=== PATIENT | female | born 1990 | race African-American/Black ===

== ENCOUNTER 2019-04-26 16:56 | Emergency (ER) | payer OTHER, SELFPAY ==
[2019-04-26 17:05] VITALS: BP 127/72; PULSE 88; RESP 18; TEMP 36.6; O2SAT 100
--- NOTE | 2019-04-26 18:33 | ED.GENADULT ---
HPI - General Adult General Chief complaint: Unspecified Stated complaint: left hip discomfort, cough x 2 weeks Time Seen by Provider: 04/26/19 17:26 Source: patient Mode of arrival: ambulatory Limitations: no limitations History of Present Illness HPI narrative: This is a 28 year old about 10 weeks that presents to the ER for cough x 3 weeks. Reports a nonproductive cough. Reports she has been taking OTC medication with little relief. Also reports left hip pain. No known injury or trauma. Pain is in the back of the left hip and sometimes radiates down the leg. Pain is worse with movement and relieved with rest. She has not taken any pain medication for this. Denies fever, rhinorrhea, congestion, sore throat, chest pain, shortness of breath, pelvic cramping, or vaginal bleeding. Related Data Home Medications Medication Instructions Recorded Confirmed [id number] fumarate-FA tablet PO 04/26/19 [] Allergies Allergy/AdvReac Type Severity Reaction Status Date / Time Sulfa (Sulfonamide Allergy Unknown Hives Verified 04/26/19 17:29 Antibiotics) Review of Systems Review of Systems: Narrative: CONSTITUTIONAL: Denies fever ENT: Denies rhinorrhea, congestion, sore throat, or otalgia. CARDIOVASCULAR: Denies chest pain RESPIRATORY: Reports cough. Denies dyspnea. MUSCULOSKELETAL: Reports joint pain, and myalgia. NEUROLOGIC: Denies numbness, or weakness. All systems reviewed & are unremarkable except as noted in HPI and below PMFSH Past Medical History Medical History (Updated 04/26/19 @ 18:44 by Luann Menjivar PA-C) History of obesity Social History Social History (Updated 04/26/19 @ 18:37 by Luann Menjivar PA-C) Smoking status: Never smoker Substance use: never Exam Narrative: Exam Narrative: GENERAL: Well-appearing, obese and in no acute distress. HEAD: Normocephalic, atraumatic. EYES: EOMI. ENT: Nares clear, no rhinorrhea or epistaxis. Mucous membranes moist. Oropharynx without tonsillar hypertrophy exudate or other lesions. Bilateral TMs pearly barger non-bulging NECK: Supple. No adenopathy or masses. CHEST: Clear to auscultation. No respiratory distress. No wheezes rales or rhonchi HEART: Regular rate and rhythm. No murmur heard. Normal peripheral pulses. BACK: No midline spinal tenderness EXTREMITIES: Normal range of motion. No edema or erythema. Strength equal in bilateral lower extremities SKIN: Warm, dry, no rash. NEURO: No focal deficits. Alert and oriented x3. PSYCH: Normal mood and affect Course Vital Signs Vital signs: Vital Signs Temperature 97.9 F 04/26/19 17:05 Pulse Rate 88 04/26/19 17:05 Respiratory Rate 18 04/26/19 17:05 Blood Pressure 127/72 04/26/19 17:05 Pulse Oximetry 100 04/26/19 17:05 Temperature 97.9 F 04/26/19 17:05 Pulse Rate 88 04/26/19 17:05 Respiratory Rate 18 04/26/19 17:05 Blood Pressure 127/72 04/26/19 17:05 Pulse Oximetry 100 04/26/19 17:05 Medical Decision Making MDM Narrative Medical decision making narrative: Patient presents the emergency department for nonproductive cough x3 weeks. She is afebrile and nontoxic-appearing. Lungs are clear on exam. Patient oxygen saturation is 100% on room air. She is not tachycardic. Patient was instructed on continued symptomatic care of viral infection. Patient also reports left hip pain. No known injury or trauma. Pain is in the posterior hip and radiates down the leg. Worse with movement and relieved with rest. She has not taken any pain medicine as she was unsure what was safe in . I instructed that Tylenol is safe for her to take in and for her to rest and use heat and ice to the area. I informed her that I did not think that imaging would be necessary without any injury to the area. Patient is able to walk. She has no midline spinal tenderness. She is neurologically intact. I did not think that imaging would help, and would expos
[2019-04-26 19:20] VITALS: BP 121/69; PULSE 79; RESP 15; TEMP 36.9; O2SAT 97
== END 2019-04-26 19:20 | disposition home or self-care (01) ==
PROVIDERS: Emergency Provider Emergency Medicine; PCP Internal Medicine
DX: R05 Cough (principal); M25.552 Pain in left hip; E66.9 Obesity, unspecified; Z68.41 Body mass index [BMI] 40.0-44.9, adult
CPT/HCPCS: 99281

== ENCOUNTER 2019-10-16 10:48 | Observation (INO) | payer OTHER, SELFPAY ==
[2019-10-16 11:15] VITALS: BMI 49.1
--- NOTE | 2019-10-16 11:15 | OBADM ---
This patient, Diana Booth, admitted to the OB room Labor/Delivery/Recovery 103 for observation for contractions and pressure. Patient/family oriented to hospital policies and general routines including ID bracelet, bed and alarms, visiting hours, pain management, procedures, bathroom and other care routines, personal items, smoking policy, room service/diet, and visiting hours. Patient/Family are encouraged to report perceived risks to care and to ask questions if they do not understand what they are told or what they should do.
--- NOTE | 2019-10-18 08:14 | P.DS_ITS ---
DS: Admitting Diagnosis Admitting Diagnosis Admitting Diagnosis: Term False labor DS: Discharge Diagnosis Discharge Diagnosis (1) Term : Code(s): Z34.90 - Encounter for supervision of normal , unspecified, unspecified trimester Status: Acute (2) False labor: Code(s): O47.9 - False labor, unspecified Status: Acute OB - DS: Summary OB Procedures : None OB Procedures Intrapartum: Other OB Procedures: : None Time Spent with Patient Time attestation: Total time spent providing and/or coordinating discharge services:15 Exam Const: General: comfortable Limitations: no limitations Chest: Breast/axilla inspection: normal inspection of the breasts Resp: Effort & Inspection: normal respiratory effort Cardio: Rate: regular rate GI: GI Palp: Yes Soft to palpation : General: Yes bladder normal to inspection Manual OB Exam: Not dilated nor effaced Amniotic Fluid: no fluid Psych: Appearance: grossly normal Mental Status: mental status grossly normal Affect: normal affect Attitude: cooperative Thought content: Yes Normal thought content present Judgement: Good judgement present (Psych) Discharge Plan Discharge Attending physician on discharge: Valentin Braun Discharging Clinician: Valentin Braun Anticipated Discharge Date/Time: 10/17/19 20:13 Patient Disposition: Home, Self-Care Activity: as tolerated Diet: as tolerated Discharge Instructions: OB ANTEPARTUM DISCHARGE INSTRUCTIONS This information is given to help you properly care for yourself at home after your discharge from the hospital. Follow these instructions until your doctor tells you otherwise. DIET: Eat Three Well Balanced Meals per Day Drink at Least Eight 8-Ounce Glasses of Caffeine-Free Beverages Daily ACTIVITY: As Tolerated RETURN TO LABOR AND DELIVERY IF YOU HAVE: Any Change In Baby's Normal Movement Pattern Any Leakage of Fluid Contractions 5-7 Minutes Apart with Increasing Intensity Vaginal Bleeding Contractions may feel like abdominal pain, tightening, cramping, pressure, back ache, or thigh ache. FOLLOW-UP CARE: Keep Next Scheduled Appointment To see Dr. Braun on 10/18/19 Valuables released to patient or family? N/A Medications from home returned to patient? N/A I Have Received Information Regarding Effective Home Pain Management I Acknowledge Receipt of and Understand the Above Instructions IF YOU HAVE ANY QUESTIONS REGARDING THESE INSTRUCTIONS, PLEASE CALL [phone]. IF PROBLEMS ARISE, CALL YOUR PROVIDER. IF EMERGENCY CARE IS NEEDED, [facility] EM[facility] ROOM IS AVAILABLE 24 HOURS A DAY. Stand Alone Forms: General Discharge Information Follow-up/Referrals: Valentin Braun MD [Physician] - 10/18/19 Discharge Medications: Continued 28-800 mg-mcg Tablet 1 tablet PO DAILY RF: 0 Date of admission: 10/16/19 10:48 Primary Care Provider: KymberlyAdriane Admitting Provider: Valentin Braun Interventions: Discharge Disposition Last Done: 10/16/19 14:33 Discharge Date/Time: 10/16/19 14:33 Attending physician on admission: Valentin Braun Condition: Stable
== END 2019-10-16 14:33 | disposition home or self-care (01) ==
PROVIDERS: Admitting Provider Obstetrics & Gynecology; PCP Internal Medicine; Visit Provider Obstetrics & Gynecology
DX: O47.1 False labor at or after 37 completed weeks of gestation (principal); Z3A.37 37 weeks gestation of pregnancy
CPT/HCPCS: G0378; G0379

== ENCOUNTER 2019-10-30 06:26 | Inpatient (IN) | payer OTHER, SELFPAY ==
[2019-10-30] VITALS (154 sets, daily range): BP systolic 47–186; BP diastolic 33–153; PULSE 75–200; RESP 16; TEMP 36.2–36.8; O2SAT 97–100; BMI 52.0; BMI 51.4
[2019-10-30] MEDS: DINOPROSTONE 10 MG VAG INSERT VAGINAL (07:52)
[2019-10-30 07:54] LABS: Basophils Percent Auto 0.2 % (0.2-1.2); Eosinophils Percent Auto 0.2 % (0-4.4); Hematocrit 31.9 % (37.0-47.0); Hemoglobin 11.2 g/dL (12.0-15.0); Immature Granulocyte Absolute 0.03 K/mm3 (0.00-0.031); Immature Granulocyte Percent A 0.3 % (0-0.5); Lymphocytes Absolute Auto 1.98 K/mm3 (0.9-3.2); Mean Corpuscular HGB Conc 35.1 g/dl (32-36); Mean Corpuscular Hemoglobin 28.4 pg (26-34); Mean Corpuscular Volume 80.8 fl (80-100); Mean Platelet Volume 12.4 fl (7.4-10.4); Monocytes Absolute Auto 0.5 K/mm3 (0.1-0.6); Monocytes Percent Auto 5.4 % (2.6-8.5); Neutrophils Absolute Auto 6.9 K/mm3 (1.3-6.7); Neutrophils Percent Auto 72.9 % (45.5-73.1); Platelet Count Result 146 k/mm3 (150-375); Red Blood Count 3.95 M/mm3 (4.2-5.4); Red Cell Distribution Width 14.4 % (11.5-14.5); White Blood Count 9.4 K/mm3 (4.5-10.0)
--- NOTE | 2019-10-30 08:00 | LDADM ---
This patient, Diana Booth, was admitted to Labor/Delivery/Recovery 108 on 10/30/19 at 06:26. Plans for labor, pain management and were discussed with patient. Patient/family oriented to hospital policies and general routines including ID bracelet, bed and alarms, visiting hours, pain management, procedures, bathroom and other care routines, personal items, smoking policy, room service/diet and guest tray routines, security routines, and visiting hours. Patient/Family are encouraged to report perceived risks to care and to ask questions if they do not understand what they are told or what they should do. See [facility] for further documentation.
--- NOTE | 2019-10-30 09:11 | WPDOBADMIT ---
Obstetrics - Admit Note Admission Note: record reviewed. No pertinent additions to the history and/or any subsequent changes in the physical findings that are not consistent with the expected course of the were found. Additions to the history and/or subsequent changes in the physical findings follow. None. 29yo aaf at 39 3/7 weeks here for elective IOL informed consent obtained
--- NOTE | 2019-10-30 09:34 | WPDANESEPP ---
Anes - Eval Pre Procedure Procedure: labor epidural Date/Time: 10/30/19 09:34 Preop Diagnosis: labor pain Pre Op Diagnosis: induction of labor Patient Data Age: 29 Gender: F Height: 5 ft 9 in Weight: 160 kg Last Vital Signs Pulse 101 H 10/30/19 08:07 BP 119/66 10/30/19 08:07 Allergies Allergy/AdvReac Type Severity Reaction Status Date / Time Sulfa (Sulfonamide Allergy Unknown Hives Verified 04/26/19 17:29 Antibiotics) Home Medications Medication Instructions Recorded Confirmed Type 1 tablet PO DAILY 04/26/19 10/16/19 History Laboratory Tests 10/30/19 10/30/19 10/30/19 07:44 07:44 07:44 WBC 9.4 K/mm3 K/mm3 (4.5-10.0) RBC 3.95 M/mm3 L M/mm3 (4.2-5.4) Hgb 11.2 g/dL L g/dL (12.0-15.0) Hct 31.9 % L % (37.0-47.0) MCV 80.8 fl fl (80-100) MCH 28.4 pg pg (26-34) MCHC 35.1 g/dl g/dl (32-36) RDW 14.4 % % (11.5-14.5) Plt Count 146 k/mm3 L k/mm3 (150-375) MPV 12.4 fl H fl (7.4-10.4) Immature Gran % (Auto) 0.3 % % (0-0.5) Neut % (Auto) 72.9 % % (45.5-73.1) Lymph % (Auto) 21.0 % % (18.3-44.2) [place] % (Auto) 5.4 % % (2.6-8.5) Eos % (Auto) 0.2 % % (0-4.4) Baso % (Auto) 0.2 % % (0.2-1.2) Lymph # (Auto) 1.98 K/mm3 K/mm3 (0.9-3.2) [place] # (Auto) 0.5 K/mm3 K/mm3 (0.1-0.6) Eos # (Auto) 0.0 K/mm3 K/mm3 (0-0.3) Baso # (Auto) 0.0 K/mm3 K/mm3 (0.0-0.1) Abs Immat Gran (auto) 0.03 K/mm3 K/mm3 (0.00-0.031) Absolute Neuts (auto) 6.9 K/mm3 H K/mm3 (1.3-6.7) Absolute Nucleated RBC 0.0 K/mm3 K/mm3 (0.0-0.012) Nucleated RBC % 0.0 % % (0.0-0.2) RPR Pending Blood Type B Positive Antibody Screen Negative Patient hx anesthesia problems: none Family hx anesthesia problems: none [facility] Past Medical History Medical History (Updated 10/18/19 @ 08:14 by Valentin Braun MD) History of obesity Family History Family History (Updated 10/15/19 @ 15:48 by Yenny North RN) Mother Hypertension Social History Social History (Updated 04/26/19 @ 18:37 by Luann Menjivar PA-C) Smoking status: Never smoker Substance use: never Gender identity (if verbalized by the patient): Female Spiritual care concerns: No Exam Day of Procedure 10/30/19 09:34
[2019-10-30] MEDS: LACTATED RINGERS 1,000 ML 125 ML IV CONT ×3 (10:00→15:21)
[2019-10-30] MEDS: AMPICILLIN 2 GM/NS 100 ML 2 GM/100 ML BAG IVPB (10:00)
[2019-10-30] MEDS: AMPICILLIN 1 GM/NS 50 ML 1 GM/50 ML BAG IVPB ×2 (15:21→17:49)
[2019-10-30] MEDS: OXYTOCIN 30 UNITS/NS 500 ML 30 UNITS/500 ML BAG IV CONT (15:55)
--- NOTE | 2019-10-30 18:59 | PM.IMHP ---
H&P: HPI History of Present Illness Date/Time: 10/30/19 06:59 Chief complaint: induction of labor Narrative: Diana Booth is a 29 year old female AAF @ 39 3/7wks ega with h/o obesity, MTHFR GBS+ here for elective IOL +fm, irregular contractions denies ROM or VB dating by 1st trimester US on 04/05/19 at 9w5d kimo= 11/03/19; 11 visits; 3 ultrasounds desires sterilization pp Review of Systems Review of Systems: All systems reviewed & are unremarkable except as noted in HPI and below PMFSH Past Medical History Medical History History of obesity Family History Family History Mother Hypertension Grandparent Diabetes mellitus Grandparent Bone cancer Social History Social History Smoking status: Never smoker Second hand tobacco smoke exposure: No Alcohol intake: former Substance use: former Substance use type: marijuana Living arrangements: with friend(s) Occupation/Education: unemployed 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 Gender identity (if verbalized by the patient): Female Sexual Orientation (if Verbalized by the Patient): Straight or Heterosexual Spiritual care concerns: No Agree to blood products: Yes Meds Home Medications and Allergies Home Medications Medication Instructions Recorded Confirmed Type 1 tablet PO DAILY 04/26/19 10/30/19 History Allergies Allergy/AdvReac Type Severity Reaction Status Date / Time Sulfa (Sulfonamide Allergy Unknown Hives Verified 04/26/19 17:29 Antibiotics) fluconazole [From Diflucan] Allergy Swelling Verified 10/30/19 09:57 Vital Signs Vital Signs - 24 hr 10/30/19 08:07 10/30/19 10:13 10/30/19 10:14 Temperature 97.6 F Pulse Rate 101 H 79 Blood Pressure 119/66 87/44 L Pulse Oximetry 10/30/19 10:30 10/30/19 10:36 10/30/19 10:42 Temperature 97.8 F 97.8 F Pulse Rate 79 Blood Pressure 115/63 Pulse Oximetry 10/30/19 12:13 10/30/19 12:42 10/30/19 12:44 Temperature 97.2 F L Pulse Rate 200 H 110 H Blood Pressure 153/115 H 135/63 Pulse Oximetry 100 10/30/19 12:47 10/30/19 12:52 10/30/19 12:55 Temperature Pulse Rate Blood Pressure Pulse Oximetry 100 100 100 10/30/19 12:56 10/30/19 12:59 10/30/19 13:04 Temperature Pulse Rate 105 H Blood Pressure 118/69 Pulse Oximetry 100 100 100 10/30/19 13:06 10/30/19 13:08 10/30/19 13:09 Temperature Pulse Rate 103 H 103 H Blood Pressure 134/103 H 124/89 Pulse Oximetry 100 10/30/19 13:10 10/30/19 13:12 10/30/19 13:14 Temperature Pulse Rate 89 91 Blood Pressure 115/67 137/57 L Pulse Oximetry 100 10/30/19 13:15 10/30/19 13:18 10/30/19 13:20 Temperature Pulse Rate 99 Blood Pressure 126/70 Pulse Oximetry 100 100 10/30/19 13:22 10/30/19 13:23 10/30/19 13:24 Temperature Pulse Rate 105 H 99 Blood Pressure 126/55 L 130/61 Pulse Oximetry 100 10/30/19 13:26 10/30/19 13:28 10/30/19 13:29 Temperature 97.9 F Pulse Rate 91 Blood Pressure 126/65 106/81 Pulse Oximetry 100 10/30/19 13:30 10/30/19 13:32 10/30/19 13:34 Temperature Pulse Rate 94 100 92 Blood Pressure 130/64 115/54 L 80/66 L Pulse Oximetry 10/30/19 13:36 10/30/19 13:38 10/30/19 13:40 Temperature Pulse Rate 90 118 H 97 Blood Pressure 115/59 L 116/75 107/56 L Pulse Oximetry 10/30/19 13:42 10/30/19 13:45 10/30/19 13:47 Temperature Pulse Rate 100 107 H 98 Blood Pressure 109/58 L 119/44 L 109/47 L Pulse Oximetry 10/30/19 13:48 10/30/19 13:50 10/30/19 13:55 Temperature Pulse Rate 102 H 87 170 H Blood Pressure 97/49 L 107/53 L 102/64 Pulse Oximetry 10/30/19 13:56 10/30/19 13:59 10/30/19 14:01 Temperature Pulse Rate 90 98 165 H Blood Pressure 98/
[2019-10-30] MEDS: ACETAMINOPHEN 500 MG TABLET 1000 MG PO (19:05)
--- NOTE | 2019-10-30 19:13 | PM.OBPNLAB ---
Pain Control Date/time seen: 10/30/19 19:13 Pain control: tolerating well and epidural Pelvic Exam Dilation (cm): 4 Effacement (%): 50 station: -3 Amniotic membrane status: Intact (arom clear af fse iupc placed without difficulty) Contractions Monitor mode: External Contraction frequency: 5 Contraction duration: 40 Contraction pattern: Regular Contraction intensity: Moderate Status status: Category l Assessment and Plan Pitocin rate (mU/min): 10 Assessment: induction ongoing Plan: continuous present management and begin patient augmentation
[2019-10-30] MEDS: ONDANSETRON INJ 4 MG/2 ML VIAL IV PUSH (19:22)
--- NOTE | 2019-10-30 20:59 | P.PCNOB_ITS ---
OB - Delivery Note Procedure Delivery date: 10/30/19 Procedure: Normal Spontaneous vertex vaginal delivery of viable female infant and placenta over intact perineum events: Labor Induction Intrapartal events: None Induction method: per pitocin protocol Delivery augmentation: rupture of membranes and pitocin Delivery monitor: internal FHT and internal uterine Route of delivery: Episiotomy description: None Laceration description: None Specimen: Yes (placenta) Estimated blood loss (mL): 100 Anesthesia type: Epidural Disposition: floor Complications: none [place] Baby Date of : 10/30/19 Time of : 20:45 Weeks of gestation at delivery: 39 Infant gender: Female Weight (pounds): 8 Weight (ounces): 6 presentation: vertex position: Left Occiput Anterior Placenta delivery description: Spontaneous and Normal Configuration cord vessel description: 3 Vessels score one minute: 8 score five minutes: 9
--- NOTE | 2019-10-30 21:03 | PM.OBDSVD ---
DS: Admitting Diagnosis Admitting Diagnosis Admitting Diagnosis: induction of labor term MTHFR GBS Obesity DS: Discharge Diagnosis Discharge Diagnosis (1) Elective induction of labor planned: Status: Acute (2) UTI (urinary tract infection): Code(s): N39.0 - Urinary tract infection, site not specified Status: Acute (3) Obesity: Code(s): E66.9 - Obesity, unspecified Status: Acute (4) HPV (human papilloma virus) infection: Code(s): B97.7 - Papillomavirus as the cause of diseases classified elsewhere Status: Acute (5) NACHO (generalized anxiety disorder): Code(s): F41.1 - Generalized anxiety disorder Status: Acute (6) BV (bacterial vaginosis): Code(s): N76.0 - Acute vaginitis; B96.89 - Other specified bacterial agents as the cause of diseases classified elsewhere Status: Acute (7) GBS carrier: Code(s): 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 - Carrier of Group B streptococcus Status: Acute (8) 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: Code(s): E72.12 - Methylenetetrahydrofolate reductase deficiency Status: Acute (9) Term : Code(s): Z34.90 - Encounter for supervision of normal , unspecified, unspecified trimester Status: Acute OB - DS: Summary OB Procedures : Ultrasound OB Procedures Intrapartum: Spontaneous Vag Delivery and GBS prophylaxis OB Procedures: : None Peripartum Data Infant Delivery Method: Natural Vaginal Laceration description: None Episiotomy description: None complications: none 1: Gender: Female Disposition of : home Status at Discharge Functional status at discharge: independent ambulation Overall status at discharge: patient is back to baseline Time Spent with Patient Time attestation: Total time spent providing and/or coordinating discharge services: Time spent: Less than 30 minutes Exam Const: General: comfortable, no acute distress, alert and awake Orientation/consciousness: patient oriented x3 Limitations: no limitations Chest: Breast/axilla inspection: normal inspection of the breasts Breast/axilla palpation: normal palpation of the breasts Resp: Effort & Inspection: normal respiratory effort Auscultation: clear to auscultation bilaterally Cardio: Rate: regular rate GI: GI Palp: Yes Soft to palpation Percussion: Yes normal to percussion Auscultation: normal bowel sounds : General: Yes bladder normal to inspection Psych: Appearance: grossly normal Mental Status: mental status grossly normal Affect: normal affect Attitude: cooperative Thought content: Yes Normal thought content present Judgement: Good judgement present (Psych) DS: Data Data Completed and Pending Labs on day of discharge: Labs from last 24 hours 10/30/19 10/30/19 10/30/19 07:44 07:44 07:44 WBC 9.4 RBC 3.95 L Hgb 11.2 L Hct 31.9 L MCV 80.8 MCH 28.4 MCHC 35.1 RDW 14.4 Plt Count 146 L MPV 12.4 H Immature Gran % (Auto) 0.3 Neut % (Auto) 72.9 Lymph % (Auto) 21.0 [place] % (Auto) 5.4 Eos % (Auto) 0.2 Baso % (Auto) 0.2 Lymph # (Auto) 1.98 [place] # (Auto) 0.5 Eos # (Auto) 0.0 Baso # (Auto) 0.0 Abs Immat Gran (auto) 0.03 Absolute Neuts (auto) 6.9 H Absolute Nucleated RBC 0.0 Nucleated RBC % 0.0 RPR Pending Blood Type B Positive Antibody Screen Negative Discharge Plan Discharge Attending physician on discharge: Valentin Braun Discharging Clinician: Valentin Braun Anticipated Discharge Date/Time: 11/02/19 21:07 Patient Disposition: Home, Self-Care Activity: may shower, unlimited and may drive after 2 weeks Diet: as tolerated and regular Wound Care Instructions: follow printed instructions Discharge Instructions: routine Patient Instructions: Antibiotic Form Stand Alone Forms: General Discharge Information Follow-up/Referrals
[2019-10-30] MEDS: OXYTOCIN 30 UNITS/NS 500 ML 30 UNITS/500 ML BAG 125 UNITS IV CONT (21:11)
[2019-10-30] MEDS: IBUPROFEN 400 MG TABLET 800 MG PO (23:08)
[2019-10-31 05:15] LABS: Hematocrit 30.6 % (37.0-47.0); Hemoglobin 10.8 g/dL (12.0-15.0)
[2019-10-31 08:00] VITALS: BP 107/71; PULSE 71; RESP 18; TEMP 36.3
[2019-10-31] MEDS: DOCUSATE SODIUM 100 MG CAPSULE PO (08:05)
[2019-10-31] MEDS: IBUPROFEN 400 MG TABLET 800 MG PO ×3 (08:06→19:10)
[2019-10-31 09:30] LABS: Rapid Plasma Reagin Non-Reactive (NonReactive)
--- NOTE | 2019-10-31 10:59 | WPDANLDPN2 ---
Anes-Prog Note L&D Date/Time: 10/31/19 10:59 Comfortable throughout: labor and delivery Neuraxial method: epidural Epidural/Spinal procedure site: clean & non-tender Neuro status: Neuro function grossly intact. Cardiovascular status: normal Respiratory status: normal Airway patency: baseline Mental status: baseline Post-Op hydration status: normal Vital Signs: Last Vital Signs Temp 36.3 C L 10/31/19 08:00 Pulse 71 10/31/19 08:00 Resp 18 10/31/19 08:00 BP 107/71 10/31/19 08:00 Pulse Ox 100 10/30/19 20:40 I/O: Intake & Output 10/30/19 10/31/19 10/31/19 23:59 07:59 15:59 Intake Total 50 Balance 50 Post-procedural complaints: none Patient feedback: Patient satisfied with anesthetic care.
--- NOTE | 2019-10-31 18:31 | P.PNOB_ITS ---
OB - PN: Subj Subjective Date/time seen: 10/31/19 18:31 29yo s/p NSVVD viable female last pm Patient comments: no complaints, pain well controlled, tolerating diet and fla tus present baby status: doing well and bottle feeding well feeding status: exclusively bottle feeding OB - PN: Obj Data Labs CBC & Chem 7: 10/31/19 04:04 Labs: Laboratory Results - last 24 hr 10/30/19 10/31/19 07:44 04:04 Hgb 10.8 L Hct 30.6 L RPR Non-reactive OB - PN A/P Assessment and Plan (1) Term delivered: Code(s): O80 - Encounter for full-term uncomplicated delivery Status: Acute Assessment and Plan: cont pp [facility] tomorrow (2) Obesity: Code(s): E66.9 - Obesity, unspecified Status: Acute (3) NACHO (generalized anxiety disorder): Code(s): F41.1 - Generalized anxiety disorder Status: Acute (4) GBS carrier: Code(s): Z22.330 - Carrier of Group B streptococcus Status: Acute (5) Heterozygous MTHFR mutation [id number]: Code(s): E72.12 - Methylenetetrahydrofolate reductase deficiency Status: Acute Time Spent With Patient Time: Total time spent is greater than 50% in coordination of care (as documented) at patient's floor/unit and/or counseling patient: Review of Systems Review of Systems: All systems reviewed & are unremarkable except as noted in HPI and below Constitutional: Constitutional: Reports no additional constitutional complaints Cardiovascular: Cardiovascular: Reports no additional cardiovascular complaints Respiratory: Respiratory: Reports no additional respiratory complaints Gastrointestinal: Gastrointestinal: Reports no additional gastrointestinal complaints Genitourinary: Genitourinary: Reports no additional female genitourinary com plaints Integumentary/Breasts: Skin/Breast: Reports system reviewed and no additional complaints, except as docu Neurologic: Reports system reviewed and no additional complaints, except as documented Exam Const: General: comfortable, no acute distress, alert and awake Orientation/consciousness: patient oriented x3 Chest: Breast/axilla inspection: normal inspection of the breasts Breast/axilla palpation: normal palpation of the breasts Resp: Effort & Inspection: normal respiratory effort Auscultation: clear to auscultation bilaterally Cardio: Rate: regular rate GI: Inspection: normal to inspection Auscultation: normal bowel sounds : General: Yes bladder normal to inspection and Yes no CVA tenderness Psych: Appearance: grossly normal Mental Status: mental status grossly normal Affect: normal affect Attitude: cooperative Judgement: Good judgement present (Psych)
[2019-10-31 19:20] VITALS: BP 125/72; PULSE 84; RESP 16; TEMP 36.8
[2019-10-31] MEDS: ZOLPIDEM TARTRATE 5 MG TABLET PO (22:25)
[2019-11-01] MEDS: IBUPROFEN 400 MG TABLET 800 MG PO (05:30)
[2019-11-01 08:05] VITALS: BP 126/74; PULSE 88; RESP 16; TEMP 36.8; O2SAT 100
--- NOTE | 2019-11-01 09:41 | PC.NURSE ---
Mom has chosen to not return for her PP f/u appt at the [facility]. has a pedi appt today at 1400 after discharge.
--- NOTE | 2019-11-02 14:21 | PM.OBDSVD ---
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 Desires sterilization DS: Discharge Diagnosis Discharge Diagnosis (1) Term delivered: Code(s): O80 - Encounter for full-term uncomplicated delivery Status: Acute (2) Elective induction of labor planned: Status: Acute (3) HPV (human papilloma virus) infection: Code(s): B97.7 - Papillomavirus as the cause of diseases classified elsewhere Status: Acute (4) NACHO (generalized anxiety disorder): Code(s): F41.1 - Generalized anxiety disorder Status: Acute (5) GBS carrier: Code(s): Z22.330 - Carrier of Group B streptococcus Status: Acute (6) Heterozygous MTHFR mutation [id number]: Code(s): E72.12 - Methylenetetrahydrofolate reductase deficiency Status: Acute OB - DS: Summary Hospital Course Time spent discussing smoking cessation with patient: 3 to 10 minutes OB Procedures : Ultrasound OB Procedures Intrapartum: Spontaneous Vag Delivery OB Procedures: : None Peripartum Data Delivery Method: Natural Vaginal Laceration description: None Episiotomy description: None complications: none 1: Gender: Female Disposition of : home Status at Discharge Functional status at discharge: independent ambulation Overall status at discharge: patient is back to baseline Time Spent with Patient Time attestation: Total time spent providing and/or coordinating discharge services: Time spent: Less than 30 minutes Exam Const: General: comfortable and no acute distress Orientation/consciousness: patient oriented x3 Limitations: no limitations Chest: Breast/axilla inspection: normal inspection of the breasts Resp: Effort & Inspection: normal respiratory effort Auscultation: clear to auscultation bilaterally Cardio: Rate: regular rate GI: GI Palp: Yes Soft to palpation Percussion: Yes normal to percussion Auscultation: normal bowel sounds : General: Yes bladder normal to inspection Psych: Appearance: grossly normal Affect: normal affect Attitude: cooperative Thought content: Yes Normal thought content present Judgement: Good judgement present (Psych) DS: Data Data Completed and Pending Pending studies at discharge: Pending at discharge 10/30/19 20:47 Surgical [PTH] Routine Discharge Plan Discharge Attending physician on discharge: Valentin Braun Discharging Clinician: Valentin Bruan Anticipated Discharge Date/Time: 11/01/19 21:07 Patient Disposition: Home, Self-Care Activity: may shower, unlimited and may drive after 2 weeks Diet: as tolerated and regular Wound Care Instructions: follow printed instructions Discharge Instructions: Education: Mom and Baby Guide Given to: Mother Follow-Up: Call your delivering provider's office for an appointment to be seen. BREAST CARE: * Wear a snug supportive bra. * For engorgement discomfort: Bottle Feeding: * May apply ice packs PERINEAL CARE: * Until bleeding stops, use your brian bottle after urinating * Change your pad frequently throughout the day * No tub baths until seen by your physician - You may shower ACTIVITY: * Rest as much as possible. * Do not exercise or lift anything heavier than your baby (such as laundry or other children.) * Avoid stairs or driving as much as possible. * Do not put anything into the vagina. No douching, tampons, or sexual activity until seen by physician. NOTIFY PHYSICIAN IF YOU HAVE ANY QUESTIONS OR IF ANY OF THE FOLLOWING SYMPTOMS OCCUR: * If your vaginal bleeding becomes foul smelling. * If your vaginal bleeding becomes more heavy than a period or if your bleeding changes from pink to bright red. However, you may pass an occasional walnut-sized clot once or twice for the
== END 2019-11-01 10:37 | disposition home or self-care (01) | DRG 560 ==
LOC: ANHLDR 21:09 → ANHOB2 23:23
PROVIDERS: Admitting Provider Obstetrics & Gynecology; PCP Internal Medicine; Visit Provider Obstetrics & Gynecology
DX: O99.824 Streptococcus B carrier state complicating childbirth (principal); Z37.0 Single live birth; Z3A.39 39 weeks gestation of pregnancy; O36.8330 Maternal care for abnormalities of the fetal heart rate or rhythm, third trimester, not applicable or unspecified; O62.3 Precipitate labor; O99.214 Obesity complicating childbirth; E66.9 Obesity, unspecified; O99.284 Endocrine, nutritional and metabolic diseases complicating childbirth; E72.12 Methylenetetrahydrofolate reductase deficiency; N76.0 Acute vaginitis; F41.1 Generalized anxiety disorder; N39.0 Urinary tract infection, site not specified; O98.52 Other viral diseases complicating childbirth; B00.9 Herpesviral infection, unspecified
CPT/HCPCS: 36415; 85014; 85018; 85025; 86592; 86850; 86900; 86901; 88307; A9270; J0290; J2405; J2590; J2795; J3010; J7120

== ENCOUNTER 2021-07-11 12:43 | Emergency (ER) | payer OTHER, SELFPAY ==
[2021-07-11 12:47] VITALS: BP 131/70; PULSE 90; RESP 18; TEMP 36.4
[2021-07-11 13:17] LABS: Appearance Urine Clear (Clear); Bilirubin Urine Negative (Negative); Blood Urine Negative (Negative); Color Urine Yellow (Yellow); Glucose Urine UA Negative (Negative); Ketones Urine Trace mg/dL (Negative); Leukocyte Esterase Ur Negative LEU/UL (Negative); Nitrate Urine Negative (Negative); Protein Urine 2+ mg/dL (Negative); Specific Grav Ur >= 1.030 (1.001-1.035)
--- NOTE | 2021-07-11 13:24 | ED.FEVER ---
HPI - Fever General Chief Complaint: Fever Stated Complaint: diarrhea Time Seen by Provider: 07/11/21 13:00 Source: patient Mode of arrival: ambulatory Limitations: no limitations History of Present Illness HPI Narrative: 31-year-old female presenting to the emergency department for evaluation of multiple days of not feeling well. Patient does describe subjective fever and chills with decreased p.o. intake. Patient denies any nausea or vomiting. Patient denies any abdominal pain. Patient states that today she did develop some burning with urination. Related Data Allergies Allergy/AdvReac Type Severity Reaction Status Date / Time Sulfa (Sulfonamide Allergy Unknown Hives Verified 04/26/19 17:29 Antibiotics) fluconazole [From Diflucan] Allergy Swelling Verified 10/30/19 09:57 Review of Systems Review of Systems: CONSTITUTIONAL: Subjective fever and chills EYES: Denies visual changes, redness, or discharge. ENT: Denies rhinorrhea, congestion, sore throat, or otalgia. CARDIOVASCULAR: Denies chest pain, palpitations, or edema. RESPIRATORY: Denies cough or dyspnea. GASTROINTESTINAL: Denies abdominal pain, nausea, vomiting, or diarrhea. Does report decreased p.o. intake GENITOURINARY: See HPI SKIN: Denies rash or itching. MUSCULOSKELETAL: Denies back pain, joint pain, or myalgia. NEUROLOGIC: Denies headache, numbness, or weakness. [facility] Past Medical History Medical History (Updated 07/11/21 @ 14:27 by Jonh Solomon MD) History of obesity Family History Family History Mother Hypertension Grandparent Diabetes mellitus Grandparent Bone cancer Social History Social History Smoking status: Never smoker Second hand tobacco smoke exposure: No Alcohol intake: former Substance use: former Substance use type: marijuana 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 Gender identity (if verbalized by the patient): Female Sexual Orientation (if Verbalized by the Patient): Straight or Heterosexual Spiritual care concerns: No Agree to blood products: Yes Exam Narrative: APPEARANCE: Well appearing, no pain, no distress, well-nourished. HEAD: normocephalic, atraumatic. EYES: PERRLA/EOMI, conjunctivae clear. NOSE: Normal no drainage EARS:TMS clear with good light reflex. THROAT: Pharynx clear, no exudate. NECK: Supple. No adenopathy, no masses. RESPIRATORY: Airway patent, respirations nonlabored. Clear to auscultation bilaterally, no rales, rhonchi, wheezing. CARDIOVASCULAR: Regular rate and rhythm without murmurs rubs or gallops. ABDOMINAL: Soft, nontender, nondistended, normal bowel sounds MUSCULOSKELETAL: Moves all extremities. Strength/ROM intact, No edema, No calf tenderness. NEURO: Alert. Cranial nerves II through XII intact. Grossly intact SKIN: Warm, dry. Normal Color Course Vital Signs Vital signs: Vital Signs Temperature 97.6 F 07/11/21 12:47 Pulse Rate 90 07/11/21 12:47 Respiratory Rate 18 07/11/21 12:47 Blood Pressure 131/70 07/11/21 12:47 Temperature 97.6 F 07/11/21 12:47 Pulse Rate 90 07/11/21 12:47 Respiratory Rate 18 07/11/21 12:47 Blood Pressure 131/70 07/11/21 12:47 MDM - Fever Differential Diagnosis Differential diagnosis: Likely viral infection Lab Data Attestation: I reviewed the patient's lab results. Labs: Lab Results 07/11/21 07/11/21 Range/Units 13:02 13:26 Urine Color Yellow (Yellow) Urine Appearance Clear (Clear) Urine pH 6.0 (5.0-9.0) Ur Specific [place] >= 1.030 (1.001-1.035) Urine Protein 2+ H (Negative) mg/dL Urine Glucose (UA) Negative (Negative) mg/dL Urine Ketones Trace (Negative) mg/dL Ur Blood (Man) Negative (Negative) Urine Nitrate Negative (Negative) Urine Bilirubin Negative (Negative) Urine Urobilinogen 1.0 (<2.0) mg/dL Leukocyte
[2021-07-11 13:26] LABS: Mucus Urine Heavy /lpf; Squamous Epithelial Cell Urine Many /hpf (Few)
[2021-07-11 13:33] LABS: Add Urine Microscopic? YES
[2021-07-11 14:08] LABS: Influenza A QL RT-PCR Negative (Negative); Influenza B QL RT-PCR Negative (Negative); SARS-CoV-2 RNA PCR Positive
== END 2021-07-11 14:33 | disposition home or self-care (01) ==
PROVIDERS: Emergency Medicine; Emergency Provider Emergency Medicine; PCP Internal Medicine
DX: U07.1 COVID-19 (principal); E66.9 Obesity, unspecified; Z68.34 Body mass index [BMI] 34.0-34.9, adult
CPT/HCPCS: 81001; 87502; 99283; C9803; U0003; U0005

== ENCOUNTER 2021-08-15 18:03 | Emergency (ER) | payer OTHER, SELFPAY ==
[2021-08-15 18:15] VITALS: BP 122/73; PULSE 90; RESP 14; TEMP 36.7; O2SAT 100
--- NOTE | 2021-08-15 18:25 | ED.URI ---
HPI - URI/Sore Throat General Chief Complaint: Upper Respiratory Infection Stated Complaint: cough x 1 week Time Seen by Provider: 08/15/21 18:21 History of Present Illness HPI Narrative: 31-year-old female presented to the emergency room for evaluation of a cough for 1 week. Patient states that cough is been nonproductive, and is associated with sinus congestion, postnasal drip, fullness in her ears and occasional sneezing. Patient also states that she has noticed that she wheezes on occasion with cough. Patient denies any shortness of breath, difficulty breathing, chest pain or fever. Patient also states that she had COVID approximately 1 month and has recovered fully since then. Patient denies history of asthma, COPD. Patient denies that she smokes. Related Data Allergies Allergy/AdvReac Type Severity Reaction Status Date / Time Sulfa (Sulfonamide Allergy Unknown Hives Verified 08/15/21 18:18 Antibiotics) fluconazole [From Diflucan] Allergy Swelling Verified 08/15/21 18:18 Review of Systems Review of Systems: CONSTITUTIONAL: Denies fever, chills, or sweats. EYES: Denies visual changes, redness, or discharge. ENT: Reports rhinorrhea and congestion CARDIOVASCULAR: Denies chest pain, palpitations, or edema. RESPIRATORY: Reports cough GASTROINTESTINAL: Denies abdominal pain, nausea, vomiting, or diarrhea. GENITOURINARY: Denies dysuria or hematuria. SKIN: Denies rash or itching. MUSCULOSKELETAL: Denies back pain, joint pain, or myalgia. NEUROLOGIC: Denies headache, numbness, dizziness, or weakness. PSYCHIATRIC: Denies anxiety or depression. 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 HEAD: Normocephalic, atraumatic. EYES: PERRLA and EOMI. ENT: Nares clear, no rhinorrhea or epistaxis. Mucous membranes moist. Oropharynx without tonsillar hypertrophy exudate or other lesions. Bilateral TMs pearly barger nonbulging NECK: Supple. No adenopathy or masses. CHEST: Clear to auscultation. No respiratory distress. No wheezes rales or rhonchi HEART: Regular rate and rhythm. No murmur heard. Normal peripheral pulses. EXTREMITIES: Normal range of motion. No edema. SKIN: Warm, dry, no rash. NEURO: No focal deficits. Alert and oriented x3. PSYCH: Normal mood and affect. Course Vital Signs Vital signs: Vital Signs Temperature 36.7 C 08/15/21 18:15 Pulse Rate 90 08/15/21 18:15 Respiratory Rate 14 08/15/21 18:15 Blood Pressure 122/73 08/15/21 18:15 Pulse Oximetry 100 08/15/21 18:15 Oxygen Delivery Room Air 08/15/21 18:15 Temperature 36.7 C 08/15/21 18:15 Pulse Rate 90 08/15/21 18:15 Respiratory Rate 14 08/15/21 18:15 Blood Pressure 122/73 08/15/21 18:15 Pulse Oximetry 100 08/15/21 18:15 Oxygen Delivery Room Air 08/15/21 18:15 Discharge Plan Discharge Clinical Impression: Upper respiratory infection Patient Disposition: Home, Self-Care Condition: Stable Instructions: Antibiotic Form, Viral Syndrome (ED), Cold Symptoms (ED) Prescriptions: New albuterol sulfate [ProAir HFA] 90 mcg/actuation HFA aerosol inhaler 1 inh inhalation QID Qty: 8.5 0RF
== END 2021-08-15 19:13 | disposition home or self-care (01) ==
LOC: ANHED 18:44
PROVIDERS: Emergency Provider Nurse Practitioner Family; PCP Internal Medicine
DX: J06.9 Acute upper respiratory infection, unspecified (principal); E66.9 Obesity, unspecified; Z68.33 Body mass index [BMI] 33.0-33.9, adult; Z86.16 Personal history of COVID-19
CPT/HCPCS: 96372; 99283; J1100

== ENCOUNTER 2021-11-29 09:04 | Emergency (ER) | payer OTHER, SELFPAY ==
--- NOTE | ~2021-11-29 | US_ITS ---
EXAMINATION:US venous doppler LE LT INDICATION:Calf and foot pain with swelling TECHNIQUE: Multiple grayscale, color flow and Doppler images of the left lower extremity deep venous systems were obtained and reviewed. COMPARISON:No prior studies for comparison. FINDINGS: The common femoral, superficial femoral and popliteal veins demonstrate normal respiratory variation, augmentation and compressibility. Color flow is also seen within the posterior tibial, pe roneal, greater saphenous and profunda veins. IMPRESSION: 1: No lower extremity deep venous thrombosis. Reviewed, dictated and finalized at location A.
--- NOTE | ~2021-11-29 | XR_ITS ---
XR foot LT min 3V 11/29/2021 09:41 INDICATION: Left foot pain with swelling PROCEDURE: 4 views left foot COMPARISON: No prior studies for comparison. FINDINGS: Fracture, dislocation or subluxation is not identified. Lisfranc joint intact. The soft tis sues appear within normal limits. No foreign bodies are identified. IMPRESSION: 1: NO ACUTE BONE OR JOINT ABNORMALITY IDENTIFIED. Reviewed, dictated and finalized at location A.
[2021-11-29 09:06] VITALS: BP 139/86; PULSE 71; RESP 15; TEMP 36.4; O2SAT 100
--- NOTE | 2021-11-29 09:36 | ED.EXTPRO ---
HPI - Extremity Problem General Chief complaint: Extremity Problem,Nontraumatic Stated complaint: LUMP L FOOT X1WK Time Seen by Provider: 11/29/21 09:15 History of Present Illness HPI Narrative: Patient is a 31-year-old healthy female here for evaluation of atraumatic left foot and calf pain for the past week. She describes it as aching soreness, but will occasionally shoot up the back of her calf. She states it is worse with flexion of her foot. She denies any numbness or tingling in her foot. She was told in the past that she has a increased risk of blood clots , but is unsure what specific risks she carries. She denies history of DVT. She is attempted ibuprofen for her pain without significant relief. She has been walking but it has been painful. Denies any chest pain, shortness of breath, fevers or chills, nausea or vomiting. Related Data Allergies Allergy/AdvReac Type Severity Reaction Status Date / Time Sulfa (Sulfonamide Allergy Unknown Hives Verified 11/29/21 09:12 Antibiotics) fluconazole [From Diflucan] Allergy Swelling Verified 11/29/21 09:12 Review of Systems Review of Systems: Gen: Denies fevers or chills Eyes: Denies eye pain or visual change ENT: Denies congestion Respiratory: Denies shortness of breath or cough CV: Denies chest pain or palpitations GI: Denies abdominal pain nausea, emesis or diarrhea : denies burning, urgency, frequency or hematuria Musculoskeletal: Reports left foot and calf pain. Neuro: Denies numbness, tingling, weakness or focal weakness Skin: Denies rash Except as documented, all other systems reviewed and negative [facility] Past Medical History Medical History (Updated 11/29/21 @ 11:31 by Luann Webster PA-C) History of obesity Family History Family History Mother Hypertension Grandparent Diabetes mellitus Grandparent Bone cancer Social History Social History Smoking status: Never smoker Second hand tobacco smoke exposure: No Alcohol intake: former Substance use: former Substance use type: marijuana 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 Gender identity (if verbalized by the patient): Female Sexual Orientation (if Verbalized by the Patient): Straight or Heterosexual Spiritual care concerns: No Agree to blood products: Yes Exam Narrative: APPEARANCE: Well appearing, no pain in distress, well-nourished. Head: Normocephalic and atraumatic. EYES: PERRLA/EOMI, conjunctivae clear NOSE: No nasal drainage EARS: External ear normal in appearance THROAT: Oropharynx is clear. Mucous membranes are moist. NECK: Supple. No adenopathy, no masses. RESPIRATORY: Airway patent, respirations nonlabored. Clear to auscultation bilaterally, no rales, rhonchi, wheezing. CARDIOVASCULAR:2+ dp/pt pulses bilaterally. Regular rate and rhythm without murmurs, rubs, or gallops. ABDOMINAL: Normoactive bowel sounds. Soft, nontender, nondistended. No rebound tenderness or guarding. MUSCULOSKELETAL: tender to palpation along arch of left foot and plantar surface of foot. no obvious deformity. pain in calf with foot flexion. Extremities are warm and well-perfused. Moves all extremities well. No edema. NEURO: Normal speech. No focal neurologic deficits. SKIN: scar over dorsum of left foot. PSYCHIATRIC: Normal affect/mood. Course Vital Signs Vital signs: Vital Signs Temperature 97.6 F 11/29/21 09:06 Pulse Rate 71 11/29/21 09:06 Respiratory Rate 15 11/29/21 09:06 Blood Pressure 139/86 11/29/21 09:06 Pulse Oximetry 100 11/29/21 09:06 Oxygen Delivery Room Air 11/29/21 09:06 Temperature 97.6 F 11/29/21 09:06 Pulse Rate 71 11/29/21 09:06 Respiratory Rate 15 11/29/21 09:06 Blood Pressure 139/86 11/29/21 09:06 Pulse Oximetry 100 11/29/21 09:06 Oxygen Delivery Room Air 11/29/21 09:06 MDM -
== END 2021-11-29 11:40 | disposition home or self-care (01) ==
PROVIDERS: Emergency Provider Emergency Medicine
DX: M79.672 Pain in left foot (principal); E66.9 Obesity, unspecified; Z68.34 Body mass index [BMI] 34.0-34.9, adult
CPT/HCPCS: 73630; 93971; 99284

== ENCOUNTER 2023-08-18 10:29 | Emergency (ER) | payer SELFPAY ==
[2023-08-18 10:34] VITALS: BP 135/72; PULSE 90; RESP 17; TEMP 37.6; O2SAT 100
[2023-08-18 10:50] VITALS: PULSE 90
[2023-08-18] MEDS: KETOROLAC 15 MG/ML VIAL (*BKC) IV PUSH (11:24)
[2023-08-18] MEDS: ONDANSETRON INJ 4 MG/2 ML VIAL IV PUSH (11:24)
[2023-08-18] MEDS: SODIUM CHLORIDE 0.9% IV 1,000 ML 999 ML IV CONT (11:24)
[2023-08-18 11:26] LABS: Basophils Percent Auto 0.2 % (0.2-1.2); Eosinophils Percent Auto 0.3 % (0-4.4); Hematocrit 33.2 % (37.0-47.0); Hemoglobin 12.2 g/dL (12.0-15.0); Immature Granulocyte Absolute 0.01 K/mm3 (0.00-0.031); Immature Granulocyte Percent A 0.2 % (0-0.5); Lymphocytes Absolute Auto 0.34 K/mm3 (0.9-3.2); Lymphocytes Percent Auto 5.5 % (18.3-44.2); Mean Corpuscular HGB Conc 36.7 g/dl (32-36); Mean Corpuscular Hemoglobin 30.9 pg (26-34); Mean Corpuscular Volume 84.1 fl (80-100); Mean Platelet Volume 10.8 fl (7.4-10.4); Monocytes Absolute Auto 0.3 K/mm3 (0.1-0.6); Monocytes Percent Auto 4.2 % (2.6-8.5); Neutrophils Absolute Auto 5.6 K/mm3 (1.3-6.7); Neutrophils Percent Auto 89.6 % (45.5-73.1); Platelet Count Result 179 k/mm3 (150-375); Red Blood Count 3.95 M/mm3 (4.2-5.4); Red Cell Distribution Width 13.2 % (11.5-14.5); White Blood Count 6.2 K/mm3 (4.5-10.0)
[2023-08-18 11:33] VITALS: BP 115/78; PULSE 94; RESP 19; TEMP 38.6; O2SAT 100
[2023-08-18 11:40] LABS: Alanine Aminotransferase 17 U/L (6-35); Alkaline Phosphatase 51 U/L (38-126); Anion Gap 8 mmol/L (4-12); Aspartate Amino Transferase 21 U/L (14-36); Bilirubin,Total 1.3 mg/dL (0.2-1.3); Blood Urea Nitrogen 15 mg/dL (7-17); Calcium 8.8 mg/dL (8.4-10.2); Carbon Dioxide 24 mmol/L (22-30); Chloride 104 mmol/L (98-107); Estimated CRCL calculation 129 ml/min; Estimated Glomerular Filt Rate > 60; Glucose 89 mg/dL (65-110); Potassium 3.2 mmol/L (3.4-5.0); Sodium 136 mmol/L (137-145)
[2023-08-18 11:45] LABS: Appearance Urine Clear (Clear); Bacteria Urine None Seen /hpf; Bilirubin Urine Negative (Negative); Blood Urine 3+ (Negative); Color Urine Yellow (Yellow); Glucose Urine UA Negative (Negative); Ketones Urine Negative (Negative); Leukocyte Esterase Ur Negative LEU/UL (Negative); Need Manual Microscopic Reviewed; Nitrate Urine Negative (Negative); Non Pathogenic Casts 0-2; Protein Urine Negative (Negative); RBC Urine 0-2 /hpf (0-2); Squamous Epithelial Cell Urine None Seen /hpf (Few); Urobilinogen Urine 0.2 mg/dL (<2.0); WBC Urine 0-5 /hpf (0-3); pH Urine 7.5 (5.0-9.0)
[2023-08-18 11:46] LABS: Add Urine Microscopic? YES; Specific Grav Ur 1.003 (1.001-1.035)
--- NOTE | 2023-08-18 13:03 | ED.GENADULT ---
HPI - General Adult General Chief complaint: Weakness Stated complaint: dehydrated Time Seen by Provider: 08/18/23 10:40 Source: patient Mode of arrival: EMS Limitations: no limitations History of Present Illness HPI narrative: 33-year-old otherwise healthy here with complaints of lower extremity weakness and generalized exertion for past few hours. Patient states that she works at [employer] but exhausted. She denies any fevers chills she complains of nausea but no vomiting. Denies abdominal pain. Onset (ago): hour(s) (2) Severity: moderate Associated symptoms: nausea/vomiting and weakness Related Data Allergies Allergy/AdvReac Type Severity Reaction Status Date / Time Sulfa (Sulfonamide Allergy Unknown Hives Verified 08/18/23 10:51 Antibiotics) fluconazole [From Diflucan] Allergy Swelling Verified 08/18/23 10:51 Review of Systems Review of Systems: All systems reviewed & are unremarkable except as noted in HPI and below Constitutional: Constitutional: Reports no additional constitutional complaints Eyes: Eyes: Reports no additional eye complaints ENT: Reports system reviewed and no additional complaints, except as documented Cardiovascular: Cardiovascular: Reports no additional cardiovascular complaints Respiratory: Respiratory: Reports no additional respiratory complaints Gastrointestinal: Gastrointestinal: Reports as per HPI Musculoskeletal: Musculoskeletal: Reports as per HPI PMFSH Past Medical History Medical History History of obesity Family History Family History Mother Hypertension Grandparent Diabetes mellitus Grandparent Bone cancer Social History Social History Smoking status: Never smoker Second hand tobacco smoke exposure: No Alcohol intake: former Substance use: former Substance use type: marijuana Living arrangements: with friend(s) Occupation/Education: unemployed 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 HEAD: Normocephalic, atraumatic. EYES: PERRLA and EOMI. ENT: Nares clear, no rhinorrhea or epistaxis. Mucous membranes moist. NECK: Supple. CHEST: Clear to auscultation. No respiratory distress. HEART: Regular rate and rhythm. No murmur heard. Normal peripheral pulses. ABDOMEN: Soft, nontender, nondistended, normal active bowel sounds. EXTREMITIES: Normal range of motion. No edema. SKIN: Warm, dry, no rash. NEURO: No focal deficits. Alert and oriented x3. PSYCH: Normal mood and affect. Course Course Emergency Course: Patient feeling much better after IV fluids. I did inform her about her lab work. Advised her to drink more fluids as tolerated, rest kidney take Tylenol ibuprofen for body aches. Vital Signs Vital signs: Vital Signs Temperature 37.6 C 08/18/23 10:34 Pulse Rate 90 08/18/23 10:34 Respiratory Rate 17 08/18/23 10:34 Blood Pressure 135/72 08/18/23 10:34 Pulse Oximetry 100 08/18/23 10:34 Oxygen Delivery Room Air 08/18/23 10:34 Temperature 38.6 C H 08/18/23 11:33 Pulse Rate 94 08/18/23 11:33 Respiratory Rate 19 08/18/23 11:33 Blood Pressure 115/78 08/18/23 11:33 Pulse Oximetry 100 08/18/23 11:33 Oxygen Delivery Room Air 08/18/23 10:34 Medical Decision Making Vital Signs Vital Signs: Vital Signs Temperature 37.6 C 08/18/23 10:34 Pulse Rate 90 08/18/23 10:34 Respiratory Rate 17 08/18/23 10:34 Blood Pressure 135/72 08/18/23 10:34 Pulse Oximetry 100 08/18/23 10:34 Oxygen Delivery Room Air 08/18/23 10:34 Temp
[2023-08-18 13:19] VITALS: BP 125/74; PULSE 87; RESP 17; O2SAT 99
== END 2023-08-18 13:21 | disposition home or self-care (01) ==
PROVIDERS: Emergency Provider Family Medicine
DX: T67.5XXA Heat exhaustion, unspecified, initial encounter (principal); R53.1 Weakness; E66.9 Obesity, unspecified; Z68.33 Body mass index [BMI] 33.0-33.9, adult; X30.XXXA Exposure to excessive natural heat, initial encounter
CPT/HCPCS: 36415; 80053; 81001; 85025; 96361; 96374; 96375; 99284; J1885; J2405; J7030

== ENCOUNTER 2024-03-05 14:56 | Emergency (ER) | payer MEDICAID, SELFPAY ==
[2024-03-05 15:02] VITALS: BP 123/73; PULSE 71; RESP 16; TEMP 36.7; O2SAT 100
--- NOTE | 2024-03-05 16:22 | ED_ITS ---
HPI - Dental/Oral General Chief complaint: Dental/Oral Stated complaint: Dental Pain Time Seen by Provider: 03/05/24 16:22 Source: patient, RN notes reviewed and old records reviewed Mode of arrival: ambulatory Limitations: no limitations History of Present Illness HPI Narrative: Patient presents with complaints of right lower dental pain. She reports that she broke part of a right lower molar about a week ago, has had significant pain since. She has been taking ibuprofen with poor relief. She denies any swelling. She denies any fever, chills, sweats. Denies other injury and trauma. Voices no other concerns or complaints at this time Related Data Home Medications ?Medication ?Instructions ?Recorded ?Confirmed ?Last Taken ?Type No Home Medications 03/05/24 03/05/24 Unknown History Allergies Allergy/AdvReac Type Severity Reaction Status Date / Time Sulfa (Sulfonamide Allergy Unknown Hives Verified 03/05/24 15:09 Antibiotics) fluconazole (From Diflucan) Allergy Swelling Verified 03/05/24 15:09 Review of Systems Review of Systems: All systems reviewed & are unremarkable except as noted in HPI and below Constitutional: Constitutional: Reports no additional constitutional complaints ENT: Reports system reviewed and no additional complaints, except as documented and Reports dental pain Cardiovascular: Cardiovascular: Reports no additional cardiovascular complaints Respiratory: Respiratory: Reports no additional respiratory complaints Gastrointestinal: Gastrointestinal: Reports no additional gastrointestinal complaints [facility] Past Medical History Medical History (Updated 03/05/24 @ 16:26 by Lucie Linton APRN) History of obesity Family History Family History Mother Hypertension Grandparent Diabetes mellitus Grandparent Bone cancer Social History Social History Smoking status: Never smoker Second hand tobacco smoke exposure: No Alcohol intake: former Substance use: former Substance use type: marijuana Living arrangements: with friend(s) Occupation/Education: unemployed 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 There is no relevant family history pertinent to the patient complaint. Exam Const: General: cooperative, no acute distress, alert and awake Orientation/consciousness: oriented to person, oriented to place and oriented to time HENMT: Head: normal to inspection Mouth: Yes moist mucous membranes Teeth and gingiva: fair dentition and other (Temporary sealant on last 2 molars. No swelling or sign of infection) Resp: Effort & Inspection: normal respiratory effort and able to speak in complete sentences Auscultation: clear to auscultation bilaterally, no crackles, no rales, no rhonchi and no wheezes Cardio: Palpation: normal PMI Rate: regular rate Rhythm: regular rhythm Heart sounds: S1 normal heart sound present and S2 normal heart sound present Neuro: General: oriented to person, oriented to place and oriented to time Cranial nerves: Yes CN's II-XII intact bilaterally Psych: Appearance: grossly normal Thought process: Normal thought process present Insight: Good insight present (Psych) Judgement: Good judgement present (Psych) Course Course Level of Care: Express Care Visit Vital Signs Vital signs: Vital Signs Temperature 98.0 F 03/05/24 15:02 Pulse Rate 71 03/05/24 15:02 Respiratory Rate 16 03/05/24 15:02 Blood Pressure 123/73 03/05/24 15:02 Pulse Oximetry 100 03/05/24 15:02 Oxygen Delivery Room Air 03/05/24 15:02 Temperature 98.0 F 03/05/24 15:02 Pulse Rate 71 03/05/24 15:02 Respiratory Rate 16 03/05/24 15:02 Blood Pressure 123/73 03/05/24 15:02 Pulse Oximetry 100 03/05/24 15:02 Oxygen Delivery Room Air 03/05/24 15:02 Reviewed MDM - Dental/Oral MDM Narrative Medical decision making narrative: Patient with dental pain, no sign of infection. States ibuprofen not working. Advised to stop ibuprofen, start naproxen. Add Tylenol. Patient nontoxic appearing in no distress, stable for discharge home. Discharge instructions reviewed with patient, as well as provided in writing per nursing staff. The instructions also include specific and strict return/GO TO THE ER as well as f/u information. All questions have been answered, and the patient deny any further questions wit h discharge and discharge plan. Some parts of this dictation were generated by voice recognition software and may contain typographical and/or grammatical inaccuracies. Differential Diagnosis Differential diagnosis: Likely dental caries, toothache, dental abscess and fracture of tooth Medical Records Attestation: I reviewed the patient's medical records. Discharge Plan Discharge Clinical Impression: Pain, dental Patient Disposition: Home, Self-Care Condition: Stable Instructions: Antibiotic Form, Toothache (ED) Additional Instructions: Take medications as prescribed. Follow-up with dentist without fail. Emergency department for new or worse symptoms Patient Language: Latvian Prescriptions: New naproxen [Naprosyn] 500 mg tablet 500 mg PO BID PRN (Reason: pain) Qty: 30 0RF No Action No Home Medications Follow-up/Referrals: Ernesto Llanos MD [Primary Care Provider] - 2 Weeks Time of Disposition: 16:27
== END 2024-03-05 16:35 | disposition home or self-care (01) ==
PROVIDERS: Emergency Provider Nurse Practitioner Family; PCP Emergency Medicine
DX: K08.89 Other specified disorders of teeth and supporting structures (principal); E66.9 Obesity, unspecified; Z68.34 Body mass index [BMI] 34.0-34.9, adult
CPT/HCPCS: 99213; G0463

== ENCOUNTER 2025-02-23 14:56 | Emergency (ER) | payer BC, SELFPAY ==
[2025-02-23 15:07] VITALS: BP 127/78; PULSE 72; RESP 18; TEMP 37.1; O2SAT 100
--- NOTE | 2025-02-23 15:11 | ED.NAVMDI ---
HPI - Nausea/Vomiting/Diarrhea General Chief complaint: Nausea/Vomiting/Diarrhea Stated complaint: Diarrhea/Chills patient presents to the [facility] with complaints of nausea, vomiting, diarrhea that began the last few days. Patient noted several people at her new work place have similar symptoms. Patient has been taking Imodium and change to an easier to digest diet which has helped with symptoms. Denies significant abdominal pain, chest pain, cough, shortness of breath, headache, or dizziness. Related Data Allergies Allergy/AdvReac Type Severity Reaction Status Date / Time Sulfa (Sulfonamide Allergy Unknown Hives Verified 02/23/25 15:04 Antibiotics) fluconazole (From Diflucan) Allergy Swelling Verified 02/23/25 15:04 Review of Systems Constitutional: Constitutional: Reports as per HPI, Denies chills, Reports fatigue, Denies fever(s) and Denies weakness Eyes: Eyes: Reports no additional eye complaints ENT: Reports as per HPI, Denies vertigo, Denies dizziness, Denies nasal congestion and Denies sore throat Cardiovascular: Cardiovascular: Reports no additional cardiovascular complaints Respiratory: Respiratory: Reports no additional respiratory complaints Gastrointestinal: Gastrointestinal: Reports as per HPI, Denies abdominal pain, Denies bloating, Denies constipation, Denies heartburn, Reports diarrhea, Reports nausea and Reports vomiting Genitourinary: Genitourinary: Reports no additional female genitourinary complaints Musculoskeletal: Musculoskeletal: Reports as per HPI, Denies back pain and Denies myalgias Integumentary/Breasts: Skin/Breast: Reports as per HPI, Denies erythema, Denies rash and Denies skin ulcer Neurologic: Reports as per HPI, Denies vertigo, Denies dizziness, Denies focal weakness and Denies weakness Psychiatric: Psychiatric: Reports no additional psychiatric complaints Endocrine: Endocrine: Reports no additional endocrine complaints Hematologic/Lymphatic: Hematologic/Lymphatic: Reports no additional hematologic/lymphatic complaints Allergic/Immunologic: Allergic/Immunologic: Reports no additional allergic/immunologic complaints [facility] Past Medical History Medical History (Updated 02/23/25 @ 15:33 by Genesis Thurman, [place], [employer]) History of obesity Family History Family History Mother Hypertension Grandparent Diabetes mellitus Grandparent Bone cancer Social History Social History Smoking status: Never smoker Second hand tobacco smoke exposure: No Alcohol intake: former Substance use: former Substance use type: marijuana Living arrangements: with friend(s) Occupation/Education: unemployed 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 Gender identity (if verbalized by the patient): Female Sexual Orientation (if Verbalized by the Patient): Straight or Heterosexual Spiritual care concerns: No Agree to blood products: Yes Exam Const: General: healthy appearing and no acute distress Nutritional Appearance: well nourished Orientation/consciousness: patient oriented x3 Limitations: no limitations Neck: Neck: normal visual inspection and no lymphadenopathy Resp: Effort & Inspection: normal respiratory effort Auscultation: clear to auscultation bilaterally Cardio: Rate: regular rate Rhythm: regular rhythm GI: Inspection: non-distended GI Palp: Yes Soft to palpation, Yes Tenderness to palpation present (GI), No Guarding due to palpation present (GI), No Rigid due to palpation, No Hernia present and No Rebound tenderness present Auscultation: normal bowel sounds Skin: General skin exam: normal color Rashes: no rashes Wounds: no wounds Neuro: General: patient oriented x3 Speech: normal speech Gait exam (Neuro): Normal gait present Psych: Mental Status: mental status grossly normal Affect: normal affect Attitude: cooperative Course Course Level of Care: Express Care Visit Vital Signs Vital signs: Vital Signs Temperature 98.7 F 02/23/25 15:07 Pulse Rate 72 02/23/25 15:07 Respiratory Rate 18 02/23/25 15:07 Blood Pressure 127/78 02/23/25 15:07 Pulse Oximetry 100 02/23/25 15:07 Oxygen Delivery Room Air 02/23/25 15:07 Temperature 98.7 F 02/23/25 15:07 Pulse Rate 72 02/23/25 15:07 Respiratory Rate 18 02/23/25 15:07 Blood Pressure 127/78 02/23/25 15:07 Pulse Oximetry 100 02/23/25 15:07 Oxygen Delivery Room Air 02/23/25 15:07 [facility] MDM Narrative Medical decision making narrative: The patient was evaluated by myself in the express care. History is obtained from patient who is an independent historian and physical exam was performed. Available medical records were reviewed at this time. Exam findings show no acute concerns or changes; patient is non-toxic appearing and is in no distress. Patient is appropriate for outpatient treatment and follow-up. I have evaluated and discussed social determinants of health with the patient that could potentially impact subsequent diagnosis and treatment plans. Differential diagnosis and treatment plan were discussed with the patient. Patient agrees with discussion and after shared medical decision making agrees with plan of care. All questions were answered to the patient's satisfaction. Differential Diagnosis Differential Diagnosis: gastroenteritis, flu, COVID, viral infection Medical Records I have reviewed the following patient records and this information was taken into consideration when formulating the assessment and plan.: previous labs, previous ER visits, previous hospitalizations and previous clinic visits Lab Data MDM Lab Attestation statement: I personally reviewed the patient's lab results. Discharge Plan Discharge Clinical Impression: Nausea, Diarrhea Patient Disposition: Home Condition: Stable Instructions: Antibiotic Form, Gastroenteritis (ED), Acute Nausea and Vomiting (ED) Additional Instructions: Viral illness may last between 7-21 days; antibiotics do not cure viral illness and are NOT recommended at this time. Recommend antihistamine such as Benadryl at night time and Zyrtec or Kennedi during the day Cough syrup may cause drowsiness; avoid driving or take it at night time. Also, recommend symptomatic treatment includes: rest, fluids, and increase humidity of the air at home. Recommend Acetaminophen as directed on the bottle to reduce fever, pain, headache. Please schedule a follow-up visit with your personal physician for further evaluation and treatment within 3-5days. If your symptoms persist, change or worsen significantly before you can contact your personal physician then please, without delay, go to the emergency department for further evaluation. Patient Language: Italian Prescriptions: New ondansetron 4 mg tablet,disintegrating 4 mg PO Q8H PRN (Reason: nausea and vomiting) Qty: 20 0RF Follow-up/Referrals: Ernesto Llanos MD [Primary Care Provider, Family Practice] Stand Alone Forms: Work/School Release IP Time of Disposition: 15:33
[2025-02-23 15:24] LABS: EDCOVIDSCREEN Negative (Negative); EDINFLUASCREEN Negative (Negative); EDINFLUBSCREEN Negative (Negative)
[2025-02-23 15:24] LABS: EDCOVIDSCREEN Negative (Negative); EDINFLUASCREEN Negative (Negative); EDINFLUBSCREEN Negative (Negative)
== END 2025-02-23 15:42 | disposition home or self-care (01) ==
PROVIDERS: Emergency Provider Nurse Practitioner Family; PCP Emergency Medicine
DX: R11.0 Nausea (principal); R19.7 Diarrhea, unspecified; Z20.822 Contact with and (suspected) exposure to COVID-19; E66.9 Obesity, unspecified; Z68.34 Body mass index [BMI] 34.0-34.9, adult
CPT/HCPCS: 87426; 87804; 99213; G0463